=== PATIENT | female | born 1995 | race Caucasian/White ===

== ENCOUNTER 2016-09-21 01:50 | Inpatient (IN) | payer MEDICAID ==
[~2016-09-21] VITALS: Ht 172.7 cm; Wt 101.6 kg
--- NOTE | ~2016-09-21 | FD ---
ADMIT: 09/21/2016 RM/LOC: 222 [facility] MR#: [id number] [address] [address] ALDO DUBOSE [address] [place] [id number] Final Diagnosis SEX: F AGE: 21 : 1995 ADMISSION DATE: 09/21/2016 DISCHARGE DATE: 09/23/2016 FINAL DIAGNOSIS: Intrauterine at term. PROCEDURE: Spontaneous vaginal delivery. Radha Maya MD/ bruce JOB #: [id number] CC: Radha Maya MD, Attending Physician Radha Maya MD, Family Physician
--- NOTE | ~2016-09-21 | HP ---
ADMIT: 09/21/2016 RM/LOC: 222 [facility] MR#: [id number] [address] [address] ALDO DUBOSE [address] [place] [id number] History and Physical SEX: F AGE: 21 : 1995 DATE OF SERVICE: REASON FOR ADMISSION: Contractions and loss of fluid. HISTORY OF PRESENT ILLNESS: The patient is a 21-year-old, 2, para 0-0- 1-0, who presented to Labor and Delivery at 39 and 5/7th weeks' gestation by last menstrual period with estimated date of confinement 09/23/2016. The patient's had been uncomplicated. At time of admission, the patient complained of contractions and loss of fluid and was noted be grossly ruptured on admission. PAST MEDICAL HISTORY: Noncontributory. PAST SURGICAL HISTORY: None. CURRENT MEDICATIONS: 1. Fergon 1 tablet daily. 2. vitamin daily. ALLERGIES: DEXTROMETHORPHAN, WHICH CAUSED THE ANAPHYLAXIS. SOCIAL HISTORY: The patient is . She denies any alcohol, tobacco, or drug use. FAMILY HISTORY: Father with history of DVT and mother with history of depression. The patient was noted to have excessive weight gain in as well. LABORATORY DATA: Blood type O positive, antibody screen negative, RPR nonreactive, rubella immune, group B Strep negative, HIV negative, gonorrhea and chlamydia negative, and hepatitis B surface antigen negative. PHYSICAL EXAMINATION: VITAL SIGNS: On admission; blood pressure 137/83, pulse 91, temperature 97.8, and respirations 16. GENERAL: The patient is alert and oriented, in no acute distress. HEART: Regular rate and rhythm without murmurs, gallops, or rubs. LUNGS: Clear to auscultation bilaterally. ABDOMEN: Soft, nontender, gravid. ADMIT: 09/21/2016 RM/LOC: 222 [facility] MR#: [id number] [address] [address] GRACY ALDO Sami [address] [place] [id number] History and Physical SEX: F AGE: 21 : 1995 EXTREMITIES: Trace edema. No calf tenderness. heart tones are in the 130s with moderate variability and accelerations present. Contractions are every 1 to 2 minutes. Cervix 3 cm dilated, 60% effaced, and -2 station. The patient is grossly ruptured. ASSESSMENT AND PLAN: 1. A 21-year-old, 2, para 0-0-1-0 at 39 and 5/7th weeks' gestation. 2. Active labor. Plan to admit in labor, and we will anticipate a spontaneous vaginal delivery. 3. Anemia of . 4. Excessive weight gain in . Radha Maya MD/ brandy JOB #: [id number] CC: Radha Maya, Attending Physician Radha Maya, Family Physician
[2016-09-24] MEDS ORDERED: PRENATAL VIT1 TAB PO (06:08)
[2016-09-24] MEDS ORDERED: MOTRIN-DPS800 MG PO (06:08)
[2016-09-24] MEDS ORDERED: IRON240 MG PO (06:08)
[2016-09-24] MEDS ORDERED: NIPPLECREAM TP (06:09)
[2016-09-24] MEDS ORDERED: TYLENOL #3 DPS1 TAB PO (06:09)
--- NOTE | 2016-10-07 09:17 | OR ---
ADMIT: 09/21/2016 RM/LOC: 222 [facility] MR#: [id number] [address] [address] ALDO DUBOSE [address] [place] [id number] Operative/Delivery Room Report SEX: F AGE: 21 : 1995 SURGERY DATE: 09/21/2016 SURGEON: Radha Maya MD NAME OF PROCEDURE: Spontaneous vaginal delivery. PREOPERATIVE DIAGNOSIS: Intrauterine at 39-5/7th weeks' gestation. POSTOPERATIVE DIAGNOSIS: Intrauterine at 39-5/7th weeks' gestation. FINDINGS: Liveborn male , scores 8 at 1 minute, 9 at 5 minutes. Weight 9 pounds 3 ounces. ESTIMATED BLOOD LOSS: 250 mL. ANESTHESIA: Epidural. COMPLICATIONS: None. INDICATIONS FOR PROCEDURE: The patient is a 21-year-old, 2, para 0-0- 1-0, who presented to Labor and Delivery at 39-5/7th weeks' gestation by last menstrual period with estimated date of confinement of 09/23/2016. The patient presented with complaints of contractions and loss of fluid. The patient progressed through labor to approximately 7 cm dilated. At that point, she did need Pitocin augmentation of labor. She then progressed to completely dilated and pushed, bringing the 's vertex to the perineum. DESCRIPTION OF PROCEDURE: The patient was noted to be complete and pushing with the infant's vertex at the perineum. The patient pushed and the 's vertex delivered in the IAN position over midline. The patient continued to push. The anterior shoulder delivered, the posterior shoulder followed, and the remainder of the infant delivered without difficulty as well. The was dried and handed off to the mother's abdomen where nursing personnel were in attendance. Twenty units of Pitocin were placed in IV bag to firm the uterus. The cord was clamped and cut. The placenta then delivered intact spontaneously. The cervix was examined and was noted to be free of lacerations. The vaginal vault and perineum were examined and there was noted to be a second-degree midline laceration, which was repaired with 2-0 Vicryl in the usual fashion. The patient tolerated the procedure well. All sponge and needle counts were correct. The patient and her recovered in the room in stable condition. Radha Maya MD/ brandy JOB #: [id number] CC: Radha Maya, Attending Physician ADMIT: 09/21/2016 RM/LOC: 222 [facility] MR#: [id number] [address] [place] [address] [place] [address] Operative/Delivery Room Report SEX: F AGE: 21 : 1995 Radha Maya, Family Physician
--- NOTE | 2016-10-07 09:17 | OR ---
ADMIT: 09/21/2016 RM/LOC: 222 [facility] MR#: [id number] [address] [address] ALDO DUBOSE Sami [address] [place] [id number] Operative/Delivery Room Report SEX: F AGE: 21 : 1995 SURGERY DATE: 09/21/2016 SURGEON: Radha Maya MD PROCEDURE: Removal of epidural catheter. INDICATIONS FOR PROCEDURE: The patient is a 21-year-old female, who had epidural catheter placed for pain control during labor. DESCRIPTION OF PROCEDURE: The patient, after delivery, was placed in the sitting position and the patient's epidural catheter was removed without difficulty. The blue tip was noted to be intact. The patient tolerated the procedure well. Radha Maya MD/ brandy JOB #: [id number] CC: Radha Maya, Attending Physician Radha Maya, Family Physician
== END 2016-09-23 11:10 | disposition home or self-care (01) | DRG 775 ==
LOC: 2LDRP 01:50 → BC 01:50 → 2LDRP 02:18 → BC 09-23 08:00 → 2LDRP 09-23 11:10
PROVIDERS: ADMIT Obstetrics & Gynecology
PROC: 10E0XZZ Delivery of Products of Conception, External Approach (ICD-10-PCS; principal; 2016-09-21)
PROC: 0KQM0ZZ Repair Perineum Muscle, Open Approach (ICD-10-PCS; principal; 2016-09-21)
DX: O99.02 Anemia complicating childbirth (principal); D64.9 Anemia, unspecified; O26.03 Excessive weight gain in pregnancy, third trimester; O70.1 Second degree perineal laceration during delivery; Z3A.39 39 weeks gestation of pregnancy; Z37.0 Single live birth; Z68.28 Body mass index [BMI] 28.0-28.9, adult